=== PATIENT | male | born 1955 | race Caucasian/White ===

== ENCOUNTER → 2021-04-14 | Outpatient (CLI) | payer MEDICARE ==
--- NOTE | 2021-04-14 10:39 | XR ---
EXAMINATION TYPE: XR chest 2V DATE OF EXAM: 04/14/2021 COMPARISON: NONE TECHNIQUE: PA and lateral views submitted. HISTORY: Shortness of breath FINDINGS: Coarsened interstitium with bibasilar subsegmental consolidation. Heart size prominent there is promi nence of the mediastinum. No pneumothorax. IMPRESSION: 1. Widened mediastinum recommend CT of the chest. Correlate for interstitial pneumonitis with basilar infiltrate.
== END | disposition home or self-care (01) ==
LOC: RADXRMAIN 10:00
PROVIDERS: ATTEND Nurse Practitioner
DX: R06.02 Shortness of breath (principal)
CPT/HCPCS: 71046

== ENCOUNTER → 2021-04-14 | Outpatient (CLI) | payer MEDICARE ==
--- NOTE | 2021-04-14 15:44 | CT ---
EXAMINATION TYPE: CT chest wo con DATE OF EXAM: 04/14/2021 COMPARISON: Chest x-ray 04/14/2021 HISTORY: SOB CT DLP: 884.6 mGycm. Automated Exposure Control for Dose Reduction was Utilized. TECHNIQUE: CT scan of the thorax is performed without IV contrast. FINDINGS: LUNGS: There are bilateral pleural effusions greater on the left with a moderate-sized effusion noted and small right pleural effusion. There is a nodular area of consolidation in the left upper lobe me asuring 2.3 cm. At this level calcified nodule seen in the left upper lobe measures 2 cm.. MEDIASTINUM: Lack of IV contrast is noted to limit evaluation for mediastinal and especially hilar ad enopathy. There numerous abnormal soft tissue masses within the mediastinum the largest measuring a s hort axis of 4.4 cm in the subcarinal region. Shotty adenopathy in the axilla is noted. There are als o supraclavicular adenopathy on the left measuring short axis of 2.4 cm. Bilateral adenopathy in the hilum greater on the left noted with a short axis measurement of 1.9 cm. Coronary artery calcificatio n noted. OTHER: Hypertrophic and degenerative changes of the spine. Left supraclavicular adenopathy as noted a tomy. Left periaortic adenopathy is also seen IMPRESSION: 1. Extensive pathologic adenopathy involving the mediastinum and hilum with the largest of the 2 mass es seen involving the subcarinal region and left hilum as measured above. Additionally there are 2 no dules densities in the left upper lobe one of which appears partially calcified. Correlate for histor y of malignancy. PET scan suggested. 2. Stable bilateral pleural effusions greater on the left. 3. Suspect left retroperitoneal lymphadenopathy only partially included on the exam. Consider short-t erm follow-up CT abdomen and pelvis. Consideration for lymphoma is suggested.
== END | disposition home or self-care (01) ==
LOC: RADCTMAIN 14:27
PROVIDERS: ATTEND Family Medicine
DX: J90 Pleural effusion, not elsewhere classified (principal); J98.4 Other disorders of lung; J98.59 Other diseases of mediastinum, not elsewhere classified
CPT/HCPCS: 71250

== ENCOUNTER → 2021-05-08 | Outpatient (CLI) | payer MEDICARE ==
--- NOTE | 2021-05-11 08:49 | PE ---
EXAMINATION TYPE: PET CT fusion skull to thigh DATE OF EXAM: 05/08/2021 CLINICAL HISTORY: 65-year-old male initial staging for lymphoma. TECHNIQUE: Following the intravenous administration of 11.7 mCi of F-18 FDG, whole body images are p erformed from the skull base to the midthigh. Images are reviewed on the computer in the coronal, ax ial, and sagittal planes. Reconstructed rotating images are created on independent workstation and r eviewed on the computer. A localization and attenuation correction CT is performed in conjunction w ith the PET scan. Glucose level: 134 mg/dL Injection site: Chest wall port COMPARISON: CT chest 04/14/2021. FINDINGS: PET: Bilateral cervical lymph adenopathy is present including the submandibular regions, cervical chains, left posterior triangles, and bilateral supraclavicular regions. Max SUV along the right cervical chain of 4.7 involving a lymph node measuring 1.6 cm. Right supraclavicular lymph node measures up to 2.9 cm, max SUV 9.5. Left posterior triangle lymph nodes measure up to 1.1 cm, max SUV 4.3. Left supraclavicular lymph node measures up to 4.1 cm, max SUV 11.5. Diffuse mediastinal and bilateral hilar lymphadenopathy. Subcarinal mass measures up to 4.9 cm, prevascular space lymphadenopathy measuring up to 4.3 x 3.0 cm . Left hilar conglomerate mass may measure up to 5.4 cm. Max SUV of the mediastinal and hilar lymphadenopathy 2.8. Increasing masslike area of consolidation in the left upper lobe. We do note some bronchial narrowing in this region, probably extrinsic mass effect from the left hilar lymphadenopathy. No discrete FDG uptake within the area of consolidation. Increasing moderate to large left pleural effusion. No discrete FDG uptake within the fluid. A 2.4 cm lobulated inferior lingular pulmonary nodule shows some central popcorn calcification. No di screte FDG uptake. Probable large granuloma that should be reassessed at follow-up. Average liver SUV 2.2. A left periaortic lymph node in the retroperitoneum measures 1.5 cm, borderline moderate uptake, max SUV 3.2. Left external iliac chain lymph nodes are present measuring up to 2.0 cm, axial image 195 but show no discrete FDG uptake. Left inguinal lymph node measures 2.4 x 1.2 cm, maximally 3.4. Right femoral chain lymph node measures 1.7 cm, max SUV 3.7. Moderate uptake focally within the intramedullary space of the proximal left femoral shaft shows no C T correlate, max SUV 4.2. Otherwise, physiologic FDG uptake within the abdomen and pelvis. ATTENUATION CORRECTION CT: These images are markedly limited due to extensive artifacts related to patient's very large body hab itus. Visualized paranasal sinuses and mastoid air cells are clear. Some calcifications in the bilateral pa latine tonsil suggestive of prior infection. The orotracheal columns clear. Lymphadenopathy as mentio vincent above. Right anterior chest wall injection port with subclavian access and catheter tip at the cavoatrial ju nction. Heart borderline enlarged without pericardial effusion. Aorta normal caliber with conventional arch v essel branching anatomy. Diffuse mediastinal and bilateral hilar lymphadenopathy as mentioned above. Left lung changes as mentioned above. Markedly Limited assessment of the abdomen and pelvis due to the patient's large size. No dilated sma ll bowel. No evident free fluid or free air given exam limitations. No obvious lymphadenopathy. Furth er extensive limitation of the pelvis due to metal hardware artifact relating to the patient's right hip total arthroplasty. The prostate gland enlargement 5.7 cm wide. Bladder nondistended. Pelvic phleboliths. Bones: Right hip total arthroplasty. Moderate degenerative change left hip. No osseous process seen. IMPRESSION: 1. Lymphomatous involvement within the neck, chest, abdomen, and pelvis. Involvement is most extensiv e in the mediastinum and hilum with conglomerate chalino masses measuring up to 5.4 cm. The next area o f greatest involvement includes the neck/supraclavicular regions where chalino mass on the left measure s up to 4.1 cm. Only a few scattered hypermetabolic nodes are noted in the abdomen and pelvis measuri ng up to 2.4 cm. Some left external iliac chain lymph nodes are enlarged up to 2.0 cm but show no upt hai. 2. In addition, there is a suspicious solitary focus of moderate uptake within the intramedullary spa ce of the proximal left femoral shaft probably representing osseous involvement. 3. Enlarging moderate to large left pleural effusion without uptake. Increasing masslike consolidatio n in the left upper lobe also without uptake, likely postobstructive atelectasis or pneumonia given l eft hilar airway narrowing from the lymphadenopathy. 4. A 2.4 cm inferior lingular pulmonary nodule show some central calcification and no uptake, probabl e large granuloma that can be reassessed at CT follow-up.
== END | disposition home or self-care (01) ==
LOC: RADPETMAIN 08:09
PROVIDERS: ATTEND Internal Medicine Hematology & Oncology
DX: C82.90 Follicular lymphoma, unspecified, unspecified site (principal); J90 Pleural effusion, not elsewhere classified; R59.0 Localized enlarged lymph nodes; R91.1 Solitary pulmonary nodule
CPT/HCPCS: 78815; A9552

== ENCOUNTER → 2021-05-17 | Outpatient (CLI) | payer MEDICARE | END | disposition home or self-care (01) | DX: I08.8 Other rheumatic multiple valve diseases (principal) | CPT/HCPCS: 93306 ==

== ENCOUNTER → 2021-07-09 | Outpatient (CLI) | payer MEDICARE ==
--- NOTE | 2021-07-12 06:25 | PE ---
EXAMINATION TYPE: PET CT fusion skull to thigh DATE OF EXAM: 07/09/2021 COMPARISON: Prior PET/CT May 08, 2021 HISTORY: Lymphoma progress study diagnosed on neck biopsy May 21 completed chemotherapy 4 days jayson salazar TECHNIQUE: Following the intravenous administration of 10.6 mCi of F-18 FDG, whole body images are p erformed from the skull base to the midthigh. Images are reviewed on the computer in the coronal, ax ial, and sagittal planes. Reconstructed rotating images are created on independent workstation and r eviewed on the computer. A localization and attenuation correction CT is performed in conjunction w ith the PET scan. Blood glucose level equals 156. SCAN: Subsequent Scan FINDINGS: The exam noted suboptimal secondary to patient's large body habitus. Mean SUV mediastinum: 0.98 Mean SUV liver: 2.5 to SKULL BASE AND NECK: Marked interval improvement in enlarged and hypermetabolic bilateral neck lymph nodes. No residual hypermetabolic or enlarged lymph nodes are present. CHEST, MEDIASTINUM, AND HILAR REGION: Small to moderate size left pleural effusion slightly improved from prior. Interval resolution of bilateral hilar and mediastinal hypermetabolic enlarged adenopathy . Interval resolution of left upper lung masslike consolidation. No new areas of abnormal hypermetabo lic uptake. ABDOMEN AND PELVIS: Mild diffuse uptake in liver and spleen. No suspicious focal hypermetabolic uptak e. Normal excretion. No new enlarged or hypermetabolic abdominal or pelvic adenopathy. OSSEOUS STRUCTURES: No new areas of abnormal hypermetabolic uptake. Mild diffuse uptake presumed post treatment response. OTHER CT: Stable right subclavian Mediport catheter. Diffuse fatty infiltration of liver is noted. Surgical changes anterior abdominal wall from prior cindy tral wall hernia repair surgery. Prominent prostate gland redemonstrated. Metallic hardware from righ t hip arthroplasty redemonstrated. IMPRESSION: Complete positive treatment response as detailed above.
== END | disposition home or self-care (01) ==
LOC: RADPETMAIN 08:01
PROVIDERS: ATTEND Internal Medicine Hematology & Oncology
DX: C82.02 Follicular lymphoma grade I, intrathoracic lymph nodes (principal); J90 Pleural effusion, not elsewhere classified; K76.0 Fatty (change of) liver, not elsewhere classified
CPT/HCPCS: 78815; A9552

== ENCOUNTER → 2021-10-08 | Outpatient (CLI) | payer MEDICARE ==
--- NOTE | 2021-10-09 10:47 | PE ---
EXAMINATION TYPE: PET CT fusion whole body DATE OF EXAM: 10/08/2021 COMPARISON: Prior PET/CT July 09, 2021 and older study May 08, 2021 HISTORY: Lymphoma progress study diagnosed on neck biopsy May 21 . Completed chemotherapy September 10, 2021 TECHNIQUE: Following the intravenous administration of 12.18 mCi of F-18 FDG, whole body images are performed from the skull base to the midthigh. Images are reviewed on the computer in the coronal, a xial, and sagittal planes. Reconstructed rotating images are created on independent workstation and reviewed on the computer. A localization and attenuation correction CT is performed in conjunction with the PET scan. Blood glucose level equals 133 SCAN: Subsequent Scan FINDINGS: Exam remains suboptimal due to patient's large body habitus. SKULL BASE AND NECK: No residual hypermetabolic or enlarged lymph nodes are present. CHEST, MEDIASTINUM, AND HILAR REGION: No new areas of abnormal hypermetabolic uptake. Interval improv ement with residual tiny left pleural effusion. ABDOMEN AND PELVIS: Mild diffuse uptake in liver and spleen redemonstrated. No suspicious focal hyper metabolic uptake. Nonspecific scattered diffuse bowel uptake on current study more prominent from radha or studies. Normal excretion. No new enlarged or hypermetabolic abdominal or pelvic lymph nodes clear ly seen. OSSEOUS STRUCTURES: No new areas of abnormal hypermetabolic uptake. OTHER CT: Stable right subclavian Mediport catheter. Stable partially calcified 1.7 cm left basilar n odule axial image 117. Diffuse fatty infiltration of liver is noted. Surgical changes anterior abdominal wall from prior cindy tral wall hernia repair surgery redemonstrated. Enlarged prostate gland redemonstrated. Metallic hard [place] from right hip arthroplasty redemonstrated causing streak artifact. IMPRESSION: Continued Complete positive treatment response as detailed above.
== END ==
LOC: RADPETMAIN 08:47
PROVIDERS: ATTEND Internal Medicine Hematology & Oncology
DX: C82.08 Follicular lymphoma grade I, lymph nodes of multiple sites (principal)
CPT/HCPCS: 78815; A9552; J1642

== ENCOUNTER 2022-08-17 07:43 | Day surgery (SDC) | payer MEDICARE ==
[2022-08-15 11:53] VITALS: BMI 46.7
[~2022-08-17 07:43] MED LIST: LACTATED RINGERS 1,000 ML IV SCH; LIDOCAINE 1% (10MG/ML) FOR IV START INTRADERMA PRN
[2022-08-17 07:59] VITALS: TEMP 97.5
--- NOTE | 2022-08-17 08:01 | P.GSHP ---
History of Present Illness H&P Date: 08/17/22 CHIEF COMPLAINT: Colon screen HISTORY OF PRESENT ILLNESS: The patient is a 66-year-old male who presents for colon screen. Lower endoscopy was offered for further evaluation and management. PAST MEDICAL HISTORY: Please see list. PAST SURGICAL HISTORY: Please see list. MEDICATIONS: Please see list. ALLERGIES: Please see list. SOCIAL HISTORY: No illicit drug use FAMILY HISTORY: No reports of Crohn disease or ulcerative colitis. REVIEW OF ORGAN SYSTEMS: CONSTITUTIONAL: No reports of fevers or chills. PHYSICAL EXAM: VITAL SIGNS: Stable GENERAL: Well-developed pleasant in no acute distress. HEENT: No scleral icterus. Extraocular movements grossly intact. Moist buccal mucosa. NECK: Supple without lymphadenopathy. CHEST: Unlabored respirations. Equal bilateral excursions. CARDIOVASCULAR: Regular rate and rhythm. Distal 2+ pulses. ABDOMEN: Soft, nontender, nondistended. MUSCULOSKELETAL: No clubbing, cyanosis, or edema. ASSESSMENT: 1. Colon screen. PLAN: 1. Recommend proceeding with a lower endoscopy Past Medical History Past Medical History: Cancer, COPD, Hypertension, Osteoarthritis (OA) Additional Past Medical History / Comment(s): hx COLON POLYPS, non hodgkins lymphoma- finished chemo 8 months ago History of Any Multi-Drug Resistant Organisms: None Reported Past Surgical History: Hernia Repair, Joint Replacement, Orthopedic Surgery Additional Past Surgical History / Comment(s): TOTAL RT HIP. HERNIA X3, RT KNEE arthroscopy. RT ELBOW SURG., COLONOSCOPY, rt carpal tunnel Past Anesthesia/Blood Transfusion Reactions: No Reported Reaction Smoking Status: Former smoker - Past Family History Father Sister(s) Family Medical History: Cancer Father Family Medical History: Cancer Sister(s) Family Medical History: Cancer Medications and Allergies Home Medications Medication Instructions Recorded Confirmed Type HYDROcodone/APAP 5-325MG [[place] 1 tab PO Q6HR PRN 10/26/16 08/15/22 History 5-325] Albuterol Sulfate [Ventolin HFA] 1 - 2 puff INHALATION Q6H PRN 05/25/21 08/15/22 History Budesonide/Glycopyr/Formoterol 2 puff INHALATION BID 05/25/21 08/15/22 History [Breztri Aerosphere Inhaler] amLODIPine [Norvasc] 5 mg PO DAILY 05/25/21 08/15/22 History lisinopriL [Prinivil] 20 mg PO DAILY 05/25/21 08/15/22 History hydroCHLOROthiazide 25 mg PO QAM 08/15/22 08/15/22 History Allergies Allergy/AdvReac Type Severity Reaction Status Date / Time No Known Allergies Allergy Verified 08/17/22 07:56 Surgical - Exam Vital Signs Temp Pulse Resp BP Pulse Ox 97.5 F L 87 16 151/68 94 L 08/17/22 07:57 08/17/22 07:57 08/17/22 07:57 08/17/22 07:57 08/17/22 07:57
[2022-08-17] MEDS ORDERED: LIDOCAINE 2% INJ 20 MG/ML (2 ML VIAL) ONE (08:38)
[2022-08-17] MEDS ORDERED: MIDAZOLAM 2 MG/2 ML VIAL ONE (08:38)
[2022-08-17] MEDS ORDERED: PROPOFOL 10 MG/ML 20 ML VIAL IV ONE (08:38)
[2022-08-17] MEDS ORDERED: KETAMINE 10 MG/ML 20 ML VIAL ONE (08:38)
[2022-08-17 09:26] VITALS: BP 98/58; PULSE 77; RESP 18
--- NOTE | 2022-08-17 09:50 | P.PCN ---
Date of Procedure: 08/17/22 Description of Procedure: PREOPERATIVE DIAGNOSIS: Personal history of colon polyps Family history colon cancer, father Colonoscopy screening POSTOPERATIVE DIAGNOSIS: Tubular adenoma hepatic flexure Tubular adenoma transverse colon Tubular adenoma ascending colon Tubular adenoma cecum Internal hemorrhoids, grade 2 OPERATION: Colonoscopy to the ileocecal valve and appendiceal orifice, cecum Colonoscopy with hot snare polypectomy SURGEON: Laura Matos MD. ANESTHESIA: MAC. INDICATIONS: The patient is an 66-year-old male who presents family history of malignant colon polyps and personal history of colon polyps. Last colonoscopy 5 years. Benefits and risks were described and informed consent was obtained. DESCRIPTION OF PROCEDURE: The patient had undergone Sutab prep. The patient had been brought into the operating room and laid in the left lateral decubitus position. After adequate intravenous sedation, the rectum was examined with 2% lidocaine jelly. The prostate was unremarkable. External hemorrhoids were encountered. The rectal tone was within normal limits. No lesions were palpated in the rectal vault. An Olympus colonoscope was advanced until the cecum, ileocecal valve and appendiceal orifice were clearly viewed. The prep was good. No sigmoid diverticulosis was encountered. Colonic polyps were found and removed. No evidence of focal colitis was found. Retroflexion of the scope demonstrated grade 2 internal hemorrhoids without active bleeding or inflammation. The colon was desufflated. The patient had tolerated the procedure well. Withdrawal time was over 6 minutes. FINDINGS: Aronchick preparation quality scale 2 (1-5) Internal hemorrhoids, grade 2 External hemorrhoids, grade 2. No arteriovenous malformations. Sigmoid diverticulosis Removal of 8 polyps: - Snare polypectomy cecum, 12 mm tubulovillous adenoma polyp. - Snare polypectomy ascending colon 2, 6 to 8 mm flat villous adenoma polyp. - Snare polypectomy of hepatic flexure, 6 mm flat villous adenoma polyp. - Snare polypectomy of proximal transverse colon, 5 mm flat villous adenoma polyp. - Snare polypectomy distal transverse colon 3, 5 to 8 mm flat villous adenoma polyp. No focal colitis. RECOMMENDATIONS: Repeat colonoscopy in 2 years, 2023 Plan - Discharge Summary New Discharge Prescriptions: Continue HYDROcodone/APAP 5-325MG [[place] 5-325] 1 tab PO Q6HR PRN PRN Reason: Pain lisinopriL [Prinivil] 20 mg PO DAILY Albuterol Sulfate [Ventolin HFA] 1 - 2 puff INHALATION Q6H PRN PRN Reason: difficulty breathing hydroCHLOROthiazide 25 mg PO QAM amLODIPine [Norvasc] 5 mg PO DAILY Budesonide/Glycopyr/Formoterol [Breztri Aerosphere Inhaler] 2 puff INHALATION BID Discharge Medication List HYDROcodone/APAP 5-325MG [[place] 5-325] 1 tab PO Q6HR PRN 10/26/16 [History] Albuterol Sulfate [Ventolin HFA] 1 - 2 puff INHALATION Q6H PRN 05/25/21 [History] Budesonide/Glycopyr/Formoterol [Breztri Aerosphere Inhaler] 2 puff INHALATION BID 05/25/21 [History] amLODIPine [Norvasc] 5 mg PO DAILY 05/25/21 [History] lisinopriL [Prinivil] 20 mg PO DAILY 05/25/21 [History] hydroCHLOROthiazide 25 mg PO QAM 08/15/22 [History] Follow up Appointment(s)/Referral(s): Laura Matos MD [STAFF PHYSICIAN] - As Needed Patient Instructions/Handouts: *Surgery [facility] - (Anesthesia) Endoscopy Discharge Instructions, Colorectal Polyps (GEN) Activity/Diet/Wound Care/Special Instructions: Repeat colonoscopy 2 years, 2023 Discharge Disposition: HOME SELF-CARE
== END 2022-08-17 10:04 | disposition home or self-care (01) ==
LOC: ORWHC2ENDO 07:43
PROVIDERS: ATTEND Surgery Plastic and Reconstructive Surgery
DX: Z12.11 Encounter for screening for malignant neoplasm of colon (principal); D12.0 Benign neoplasm of cecum; D12.2 Benign neoplasm of ascending colon; D12.3 Benign neoplasm of transverse colon; I10 Essential (primary) hypertension; J44.9 Chronic obstructive pulmonary disease, unspecified; K64.8 Other hemorrhoids; M19.90 Unspecified osteoarthritis, unspecified site; Z80.0 Family history of malignant neoplasm of digestive organs; Z87.19 Personal history of other diseases of the digestive system; Z87.891 Personal history of nicotine dependence
CPT/HCPCS: 88305; 45385; J2250; J2704; J2001

== ENCOUNTER → 2022-11-21 | Outpatient (CLI) | payer MEDICARE ==
[2022-11-21 11:45] LABS: African American GFR (CKD) >90 (>60 ml/min/1.73 sqM); Blood Urea Nitrogen 18 mg/dL (9-20); Non-African American GFR(CKD) 82 (>60 ml/min/1.73 sqM)
--- NOTE | 2022-11-21 13:00 | CT ---
EXAMINATION TYPE: CT ChestAbdPelvis w con CT DLP: 3065.8 mGycm, Automated exposure control for dose reduction was used. DATE OF EXAM: 11/21/2022 12:25 PM COMPARISON: 10/08/2021 PET/CT. 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 Two-dimensional cor onal and sagittal reconstructions were obtained. Contrast used:70cc mL of Isovue 300 with IV Contrast, Oral contrast used: with Oral Contrast Findings: CHEST: LUNGS/ PLEURA: Left lower lobe partially calcified probable granuloma. No significantly changed from 04/14/2021 AIRWAY: Patent and unremarkable. HEART: Size within normal limits. MEDIASTINUM: No gross evidence of adenopathy. No greater than 1.0 cm in short axis lymph nodes identi fied VASCULATURE: No aortic aneurysm. MUSCULOSKELETAL: No acute osseous abnormalities. SOFT TISSUES/LYMPH NODES: Right chest wall [id number] has been removed. Partially visualized dorothy ter tubing could represent partially visualized peripherally inserted central catheter. LOWER NECK: No significant findings. ABDOMEN: ABDOMEN LIVER: Diffusely hypoattenuating parenchyma. GALLBLADDER AND BILE DUCTS: Unremarkable. PANCREAS: Unremarkable. SPLEEN: Unremarkable. ADRENAL GLANDS: Unremarkable. KIDNEYS AND URETERS: No evidence of hydronephrosis or renal calculus. The ureters are unremarkable. PELVIS BLADDER: Unremarkable REPRODUCTIVE: Unremarkable. ABDOMEN & PELVIS STOMACH AND BOWEL: No evidence of bowel obstruction. PERITONEUM: No evidence of pneumoperitoneum or free fluid. VASCULATURE: No evidence of aortic aneurysm. MUSCULOSKELETAL: No acute osseous abnormalities, right hip arthroplasty changes. Hardware appears int act. LYMPH NODES: No gross evidence for lymphadenopathy. SOFT TISSUE/ABDOMINAL WALL: Ventral fat-containing hernia. IMPRESSION: 1. No new or enlarging lymph nodes. No evidence for recurrence. 2. Hepatic steatosis. 3. Ventral wall fat-containing hernia.
== END | disposition home or self-care (01) ==
LOC: RADPROMAIN 10:04
PROVIDERS: ATTEND Internal Medicine Hematology & Oncology
DX: C82.08 Follicular lymphoma grade I, lymph nodes of multiple sites (principal); I10 Essential (primary) hypertension; J44.9 Chronic obstructive pulmonary disease, unspecified; Z71.3 Dietary counseling and surveillance
CPT/HCPCS: 82565; 84520; 71260; 74177; 36415; J1642; Q9967 ×2

== ENCOUNTER → 2022-11-28 | Outpatient (CLI) | payer MEDICARE ==
--- NOTE | 2022-11-28 14:46 | XR ---
EXAMINATION TYPE: XR Hip Bilateral and AP pelvis DATE OF EXAM: 11/28/2022 COMPARISON: NONE HISTORY: Pain TECHNIQUE: A single AP view of the pelvis is obtained. Two views of the lateral hip are obtained. FINDINGS: There is no acute fracture/dislocation evident in the pelvis. SI joints symmetric. Hypertr ophic degenerative changes spine. Findings suggest previous hernia repair surgery. Postsurgical rehman e right hip with soft tissue heterotopic ossification. Moderate to severe concentric narrowing of the left hip. Calcifications in the pelvis are nonspecific. IMPRESSION: 1. Postoperative changes right hip 2. Moderate to severe arthritic change of the left hip.
== END | disposition home or self-care (01) ==
LOC: RADXRMAIN 14:17
PROVIDERS: ATTEND Family Medicine
DX: M16.12 Unilateral primary osteoarthritis, left hip (principal); Z98.890 Other specified postprocedural states
CPT/HCPCS: 73521